=== PATIENT | male | born 1950 | race Caucasian/White ===

== ENCOUNTER 2017-01-01 13:47 | Inpatient (IN) | payer OTHER ==
--- NOTE | 2017-01-01 14:24 | PDOC ---
[id number] I have performed the following: I have examined & evaluated the patient, The case was reviewed & discussed with the resident, I agree w/resident's findings & plan, Exceptions are as noted - HPI HPI: 66 yo M history esophageal and colon CA s/p multiple abdominal surgeries ( including 70% colon resection) presents with diarrhea, fever for past 2 days. The diarrhea is water, foul-smelling, and multiple episodes per day. He was referred to ED by his surgeon after an appointment this morning. Dr. Guadarrama called prior to patient arrival with prior history information. He is not currently on any chemo. No recent antibiotic use, travel, sick contacts. He has been hospitalized recently. - Physicial Exam PE: GENERAL: Awake, alert, and fully oriented, in no acute distress. Appears ill but nontoxic. HEAD: No signs of trauma EYES: PERRLA, EOMI, sclera anicteric, conjunctiva clear ENT: Auricles normal inspection, hearing grossly normal, nares patent, oropharynx clear without exudates. Dry mucosa NECK: Normal ROM, supple, no lymphadenopathy, JVD, or masses LUNGS: Breath sounds equal, clear to auscultation bilaterally. No wheezes, and no crackles HEART: Regular rate and rhythm, normal S1 and S2, no murmurs, rubs or gallops ABDOMEN: Soft, nontender, hyperactive bowel sounds. No guarding, no rebound. No masses EXTREMITIES: Normal range of motion, no edema. No clubbing or cyanosis. No cords, erythema, or tenderness NEUROLOGICAL: Cranial nerves II through XII grossly intact. Normal speech, normal gait SKIN: Warm, Dry, normal turgor, no rashes or lesions noted. - Medical Decision Making I received a call from Dr. Guadarrama prior to patient arrival. Presenting with diarrhea, fever. Very complicated surgical history. Will obtain labs. Based on initial vital signs and clinical appearance, patient will require admission. Heart Score/ECG Review - ECG Impressions Comment:: EKG read 14:42- sinus tach 122 bpm, no acute ST/T changes
--- NOTE | 2017-01-01 15:06 | PDOC ---
History of Present Illness - General Chief Complaint: Weakness Stated Complaint: DEHYDRATED, VOMITING (PCP SENT) Time Seen by Provider: 01/01/17 14:16 History Source: Patient Exam Limitations: No Limitations - History of Present Illness Initial Comments: 01/01/17 15:01 66 yo M with significant PMHx of esophageal and colon cancer presents with 2 day history of fevers and diarrhea. He states for the past 2 days he has had a fever tmax 101.4 and constant diarrhea. Diarrhea is non-bloody and very watery and foul smelling more than 10 BM/day. He went to see surgeon today and oncologist and both suggested he come to ED to be evaluated. No recent travel, sick contacts, or antibiotic use. Denies CP, BARNHART, SOB, abd. pain, N/V. Timing/Duration: 24 hours Associated Symptoms: reports: fever/chills, malaise, weakness Past History - Travel Traveled outside of the country in the last 30 days: No Close contact w/someone who was outside of country & ill: No - Past Medical History Allergies/Adverse Reactions: Allergies Allergy/AdvReac Type Severity Reaction Status Date / Time No Known Allergies Allergy Verified 01/01/17 13:52 Home Medications: Ambulatory Orders Atorvastatin Calcium 40 mg PO DAILY 11/03/15 Pantoprazole Sodium [Protonix] 40 mg PO DAILY 11/03/15 Magnesium Oxide [Mag-Ox -] 400 mg PO BID #60 tablet 01/21/16 Furosemide [Lasix] 40 mg PO DAILY 01/01/17 Loperamide HCl [Imodium -] 2 mg PO DAILY 01/01/17 Anemia: No Asthma: No Cancer: Yes (COLON, GASTRO-ESOPHOGEAL CANCER) Cardiac Disorders: Yes (SINUS TACHYCARDIA) CVA: No COPD: No CHF: No Dementia: No Diabetes: Yes (Pt states it is controlled) GI Disorders: No Disorders: (BPH) HTN: No Hypercholesterolemia: Yes Liver Disease: No Seizures: No Thyroid Disease: No Other medical history: had lymph node leaking in stomach in past - Surgical History Abdominal Surgery: Yes (Partical COLECTOMY) Appendectomy: No Cardiac Surgery: No Cholecystectomy: No Lung Surgery: No Neurologic Surgery: No Orthopedic Surgery: No - Immunization History Immunization Up to Date: Yes - Psycho/Social/Smoking Cessation Hx Suicidal Ideation: No Smoking History: Never smoked Have you smoked in the past 12 months: No If you are a former smoker, when did you quit?: over 30 years ago Cigars Per Day: 18 Information on smoking cessation initiated: No Hx Alcohol Use: No Drug/Substance Use Hx: No Substance Use Type: None Hx Substance Use Treatment: No Review of Systems - Review of Systems Able to Perform ROS?: Yes Is the patient limited American proficient: No Cardiac (ROS): Yes: Edema. No: Chest Pain ABD/GI: Yes: Diarrhea. No: Blood Streaked Bowels, Rectal Bleeding, Abdominal cramping *Physical Exam - Vital Signs Last Vital Signs Temp Pulse Resp BP Pulse Ox 99 F 130 H 17 138/68 99 01/01/17 13:50 01/01/17 13:50 01/01/17 13:50 01/01/17 13:50 01/01/17 13:50 - Physical Exam General Appearance: Yes: Moderate Distress HEENT: positive: EOMI, CARRI Neck: positive: Supple Respiratory/Chest: positive: Lungs Clear, Normal Breath Sounds, Other (large 15cm scar just below right scapula. Mediport in place right chest was 2nd intercostal space. ). negative: Respiratory Distress, Accessory Muscle Use Cardiovascular: positive: Regular Rhythm, Regular Rate, S1, S2. negative: Edema , JVD, Murmur Gastrointestinal/Abdominal: positive: Normal Bowel Sounds, Flat, Soft Male Genitalia: positive: other Musculoskeletal: positive: Normal Inspection Extremity: positive: Normal Range of Motion Integumentary: positive: Normal Color, Dry, Warm Neurologic: positive: senior living sales counselor II-XII NML intact, Fully Oriented, Alert, Normal Mood/ Affect, Motor Strength 5/5 ED Treatment Course - LABORATORY CBC & Chemistry Diagram: 01/01/17 12:55 01/01/17 15:03 - RADIOLOGY Radiology Studies Ordered: Category Date Time Status CHEST X-RAY PORTABLE* [RAD] Stat Radiology 01/01/17 14:59 Ordered Medical Decision Making - Medical Decision Making 01/01/17 15:12 A:66 yo M with significant PMHx of esophageal and colon cancer presents with 2 day history of fevers and diarrhea. Found to be febrile and tachycardic. P: * WIll send for Sepsis protocol 01/01/17 16:19 * CBC shows neutrophilia * Will admit the patient to Dr. Joseph *DC/Admit/Observation/Transfer Diagnosis at time of Disposition: Infectious diarrhea in adult patient, Dehydration Diarrhea Qualifiers: Diarrhea type: unspecified type Qualified Code(s): R19.7 - Diarrhea, unspecified Fever Qualifiers: Fever type: unspecified Qualified Code(s): R50.9 - Fever, unspecified - Discharge Dispostion Condition at time of disposition: Stable Admit: Yes
[2017-01-01] MEDS: SODIUM CHLORIDE 1,000 ML IV SCH ×2 (15:07→21:06)
[2017-01-01 15:19] LABS: BASOPHIL 0.3 % (0-2.0); MCH 27.6 pg (25.7-33.7); MCHC 32.1 g/dl (32.0-35.9); MEAN CELL VOLUME 85.8 fl (80-96); MEAN PLT VOLUME 6.4 fl (7.5-11.1); NEUTROPHILS 89.2 % (42.8-82.8); PLATELET COUNT 180 K/MM3 (134-434); RDW 15.3 % (11.9-15.9); WHITE BLOOD COUNT 5.3 K/mm3 (4.0-10.0)
[2017-01-01 15:53] LABS: ALBUMIN 3.2 g/dl (3.4-5.0); ANION GAP 11 (8-16); CALCIUM 7.9 mg/dL (8.5-10.1); CO2 20 mmol/L (21-32); GLUCOSE,RANDOM 124 mg/dL (74-106); SGOT/AST 36 U/L (15-37); SGPT/ALT 38 U/L (12-78)
[2017-01-01 15:55] LABS: BILIRUBIN,TOTAL 0.3 mg/dL (0.2-1.0); COCKROFT - GAULT 61.78; CREATININE 1.3 mg/dL (0.7-1.3)
[2017-01-01 15:56] LABS: INR 1.18 (0.82-1.09)
[2017-01-01 15:57] LABS: ALK PHOS 87 U/L (45-117); TROPONIN I < 0.02 ng/ml (0.00-0.05)
[2017-01-01 15:58] LABS: ACTIVATED PTT 29.8 SECONDS (26.9-34.4)
[2017-01-01] MEDS ORDERED: ACETAMINOPHEN 325 MG TABLET (FP) PO ONE (16:04)
[2017-01-01] MEDS ORDERED: ACETAMINOPHEN 325 MG TABLET (FP) ONE (16:07)
[2017-01-01] MEDS ORDERED: METRONIDAZOLE 500 MG PREMIXED 100 ML IVPB ONE ×2 (17:46→18:29)
[2017-01-01] MEDS ORDERED: CEFTRIAXONE 50 ML ONE (18:29)
[2017-01-01] MEDS: cefTRIAXone 1 GM/50 ML BAG (PRE-DOCKED) IVPB SCH (18:41)
[2017-01-01] MEDS ORDERED: ONDANSETRON 4 MG/2 ML VIAL IVPB PRN (18:42)
[2017-01-01] MEDS ORDERED: ACETAMINOPHEN 325 MG TABLET (FP) PO PRN (18:42)
[2017-01-01 20:37] VITALS: BMI 22.5
[2017-01-01] MEDS: HEPARIN NA (PORCINE) 5,000 UNITS/ML 1ML VIAL SQ SCH (21:07)
[2017-01-01] MEDS: ATORVASTATIN CA 40 MG TABLET (FP) PO SCH ×2 (21:07→22:18)
[2017-01-01] MEDS: MAGNESIUM OXIDE 400 MG TABLET (FP) PO SCH (21:07)
--- NOTE | 2017-01-01 22:07 | CONSULT ---
Consult - text type - Consultation Consultation Note: Patient seen and examined 66 yo M with significant PMHx of esophageal and colon cancer presents with 2 day history of fevers and diarrhea. He states for the past 2 days he has had a fever tmax 101.4 and constant diarrhea. Diarrhea is non-bloody and very watery and foul smelling more than 10 BM/day. Denies CP, BARNHART, SOB, abd. pain, N/V. - Past Medical History Colon cancer GE junction cancer DM sinus tachycardia BPH hypercholesterolemia Allergies/Adverse Reactions: Allergies Allergy/AdvReac Type Severity Reaction Status Date / Time No Known Allergies Allergy Verified 01/01/17 13:52 Home Medications: Ambulatory Orders Atorvastatin Calcium 40 mg PO DAILY 11/03/15 Pantoprazole Sodium [Protonix] 40 mg PO DAILY 11/03/15 Magnesium Oxide [Mag-Ox -] 400 mg PO BID #60 tablet 01/21/16 Furosemide [Lasix] 40 mg PO DAILY 01/01/17 Loperamide HCl [Imodium -] 2 mg PO DAILY 01/01/17 \ - Surgical History Abdominal Surgery: subtotal colectomy gastroesophagectomy - Psycho/Social/Smoking Cessation Hx Smoking History: Never smoked *Physical Exam - Vital Signs Last Vital Signs Temp Pulse Resp BP Pulse Ox 99 F 130 H 17 138/68 99 01/01/17 13:50 01/01/17 13:50 01/01/17 13:50 01/01/17 13:50 01/01/17 13:50 Cor: RSR, No murmurs, No gallops Lungs: Clear to P&A Abd: Soft, Normal bowel sounds, No organomegaly Ext:No significant edema A/P 66 y/o male with h/o colon cancer stage II s/p resection, subtotal colectomy. 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 Post op. 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 viral versus other No abdominal symptoms check cultures check stool studies/c,diff IV fluids ID consult empiric rocephin/flagyl
[2017-01-02] MEDS: SODIUM CHLORIDE 1,000 ML IV SCH ×2 (05:57→11:31)
[2017-01-02 07:24] LABS: BASOPHIL 0.4 % (0-2.0); MCH 27.7 pg (25.7-33.7); MCHC 32.8 g/dl (32.0-35.9); MEAN CELL VOLUME 84.6 fl (80-96); MEAN PLT VOLUME 5.9 fl (7.5-11.1); NEUTROPHILS 78.4 % (42.8-82.8); PLATELET COUNT 168 K/MM3 (134-434); RDW 14.8 % (11.9-15.9); WHITE BLOOD COUNT 2.6 K/mm3 (4.0-10.0)
[2017-01-02 07:57] LABS: ALBUMIN 2.7 g/dl (3.4-5.0); ANION GAP 10 (8-16); CO2 20 mmol/L (21-32); GLUCOSE,RANDOM 97 mg/dL (74-106); SGOT/AST 28 U/L (15-37); SGPT/ALT 30 U/L (12-78)
[2017-01-02 08:00] LABS: ALK PHOS 74 U/L (45-117); BILIRUBIN,TOTAL 0.3 mg/dL (0.2-1.0); COCKROFT - GAULT 80.79; TOT PROT 6.1 g/dl (6.4-8.2)
[2017-01-02] MEDS ORDERED: PANTOPRAZOLE 40 MG TABLET (FP) PO SCH (10:00)
[2017-01-02] MEDS ORDERED: FUROSEMIDE 40 MG TABLET (FP) PO SCH (10:00)
[2017-01-02] MEDS: MAGNESIUM OXIDE 400 MG TABLET (FP) PO SCH (10:24)
[2017-01-02] MEDS: HEPARIN NA (PORCINE) 5,000 UNITS/ML 1ML VIAL SQ SCH ×2 (10:24→22:21)
[2017-01-02] MEDS: cefTRIAXone 1 GM/50 ML BAG (PRE-DOCKED) IVPB SCH (10:25)
--- NOTE | 2017-01-02 10:40 | HP ---
Admitting History and Physical - Admission Chief Complaint: vomtting and fever History of Present Illness: 66 y/o male with comes in with two day hsitory of watery non bloody no foul selling diarrhea adn temp 101 with chills, he says he has been having multiple episodes and he feels weak and tired, he took imodium no relief,He was referred to ED by his surgeon after an appointment this morning.He is not currently on any chemo. No recent antibiotic use, travel, sick contacts. He has been hospitalized recently. 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 Post op. 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 d/ruddy subsequently by pt (with MD consultation ) because of dizziness) Gastrointestinal: Yes: Cancer (colon s/p chemo and surgery, now GE junction CA - > chemo and XRT -> for surgery), Diverticulosis Heme/Onc: Yes: Cancer (colon), Current Chemotherapy, Current Radiation Therapy Rheumatology: Yes: Other (Psoriasis) Endocrine: Yes: Diabetes Mellitus (for > 20 yrs -> on insulin for almost as long ) Dermatology: Yes: Psoriasis - Advance Directives Advance Directives: Yes: Health Care Proxy - Smoking History Smoking history: Former smoker Have you smoked in the past 12 months: No If you are a former smoker, when did you quit?: over 30 years ago - Alcohol/Substance Use Hx Alcohol Use: No - Social History 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 Home Medications - Allergies Allergies/Adverse Reactions: Allergies Allergy/AdvReac Type Severity Reaction Status Date / Time No Known Allergies Allergy Verified 01/01/17 13:52 - Home Medications Home Medications: Ambulatory Orders Atorvastatin Calcium 40 mg PO DAILY 11/03/15 Pantoprazole Sodium [Protonix] 40 mg PO DAILY 11/03/15 Magnesium Oxide [Mag-Ox -] 400 mg PO BID #60 tablet 01/21/16 Furosemide [Lasix] 40 mg PO DAILY 01/01/17 Loperamide HCl [Imodium -] 2 mg PO DAILY 01/01/17 Family Disease History - Family Disease History Family Disease History: CA: Father (lung), Other: Mother (CVA in her 80s) Physical Examination Vital Signs: Vital Signs Temperature 100.6 F H 01/02/17 06:00 Pulse Rate 99 H 01/02/17 06:00 Respiratory Rate 20 01/02/17 06:00 Blood Pressure 127/70 01/02/17 06:00 O2 Sat by Pulse Oximetry (%) 96 01/01/17 20:41 temp 100.6 and wbc 2.6 in bed awake alert oriented still with loose BM Constitutional: Yes: Calm, Thin Neck: Yes: Trachea Midline Cardiovascular: Yes: Regular Rate and Rhythm, S1, S2 Respiratory: Yes: CTA Bilaterally Gastrointestinal: Yes: Normal Bowel Sounds, Soft, Other (multiple surgical scars ) Edema: No Neurological: Yes: Alert, Oriented Labs: CBC, BMP 01/02/17 06:35 01/02/17 06:35 Problem List - Problems (1) Diarrhea Assessment/Plan: got flagy l and rocephin in ER stool c diff negative stool studies ordered iv fluids ID consult heme on board kosta stop magoxide and ppi given the diarrhea will monitor lytes will hold lasix for now Code(s): R19.7 - DIARRHEA, UNSPECIFIED Qualifiers: Qualified Code(s): R19.7 - Diarrhea, unspecified (2) Dehydration Assessment/Plan: bun is trendign down with iv fluids Code(s): E86.0 - DEHYDRATION (3) Colon cancer Assessment/Plan: s/p multipe surgeries dvt ppx Code(s): C18.9 - MALIGNANT NEOPLASM OF COLON, UNSPECIFIED Assessment/Plan h/o DM check Hga1c diabetic diet
[2017-01-02 10:47] LABS: URINE APPEARANCE CLEAR; URINE BILIRUBIN NEGATIVE (NEGATIVE); URINE BLOOD NEGATIVE (NEGATIVE); URINE COLOR YELLOW; URINE GLUCOSE (UA) NEGATIVE (NEGATIVE); URINE KETONE NEGATIVE (NEGATIVE); URINE LEUK ESTERASE NEGATIVE (NEGATIVE); URINE NITRITE NEGATIVE (NEGATIVE); URINE PROTEIN NEGATIVE (NEGATIVE); URINE UROBILINOGEN NEGATIVE E.U./dl (0.2-1.0)
--- NOTE | 2017-01-02 10:55 | PN ---
Progress Note (short form) - Note Progress Note: ID consult dictated 66 year old man with extensive PMH including hemicolectomy, gatroesophageal cancer s/p gastoesophagectomy, chylous ascites leak s/p shunt with 3 revisions s/p chemo and RT many months ago no travel pet dog and 2 cats no sick contacts no recent antibiotics now with acute onset of nonbloody diarrhea and fevers on Sunday fever- diarrhea/gastroenteritis- started on rocephin/flagyl in ed cdiff negative can d/c flagyl continue ceftriaxone f/u blood cultures send stools for culture, wbc and norovirus extensive history of cancer and abd surgery as above Problem List - Problems (1) Fever Code(s): R50.9 - FEVER, UNSPECIFIED Qualifiers: Fever type: unspecified Qualified Code(s): R50.9 - Fever, unspecified (2) Diarrhea Code(s): R19.7 - DIARRHEA, UNSPECIFIED Qualifiers: Diarrhea type: unspecified type Qualified Code(s): R19.7 - Diarrhea, unspecified
[2017-01-02] MEDS ORDERED: INSULIN (NOVOLOG) ASPART 100 UNITS/ML 10ML VIAL ONE (11:14)
[2017-01-02] MEDS: INSULIN SLIDING SCALE (NOVOLOG) 1 VIAL SQ SCH ×3 (11:30→22:21)
--- NOTE | 2017-01-02 14:22 | CONS ---
DATE OF CONSULTATION: DATE OF DICTATION: 01/02/2017 REQUESTING PHYSICIAN: Roger Joseph MD HISTORY OF PRESENT ILLNESS: This is a 66-year-old man admitted with a history of diarrhea since Sunday. He has had some associated fever and chills, as high as 101 at home. He saw his surgeon on Sunday who advised admission. He declined, went home. Later that day, he continued to feel poorly. He came to [facility]. His surgeon is at [facility], and he did not want to be hospitalized there. There is no history of any recent travel or sick contacts. He has not been on antibiotics recently. He was last in the hospital 2 months ago at [facility] for a shunt revision, and there have not been any unusual foods. His stools are yellow, they are non-bloody, and he reports this morning, they are already improving. He has a history of colon cancer. He is status post a subtotal colectomy. He has a history of GE junction cancer. He is status post esophagogastrectomy, chemotherapy and radiation therapy. His postoperative course was complicated by chylous ascites requiring , a shunt that was revised 3 times, the last 2 months ago. As well, he states on the last surgery, they were able to find the area of leak and patch it. His ascites has resolved since that time. He has no vomiting. He has no nausea. His appetite is limited because he has a stricture at the site of anastomosis of his prior surgery. PAST MEDICAL HISTORY: Notable for hyperlipidemia, history of colon cancer, history of GE junction cancer. He is status post chemotherapy and radiation therapy, all of which he finished many months ago. He has a history of diverticulosis, colon cancer, psoriasis, diabetes. SURGICAL HISTORY: As per HPI. He has had a subtotal colectomy, esophagogastrectomy, placement of an abdominal shunt that has been revised 3 times. FAMILY HISTORY: Notable for lung cancer and CVA in his mom, lung cancer in his dad. ALLERGIES: There are no known allergies. MEDICATIONS: He takes atorvastatin, Protonix, magnesium oxide, Lasix, and Imodium p.r.n. as an outpatient. 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 He lives with his . They have a dog and 2 cats. His was recently seen in the emergency room for fecal impaction and was given laxatives. He is a former smoker and he quit over 30 years ago. REVIEW OF SYSTEMS: He reports feeling better at this time. PHYSICAL EXAMINATION Vital signs: His maximum temperature is 102.8 in the emergency room, current temperature is 98.1, pulse 88, blood pressure 111/65, respiratory rate 20, he is saturating 100%. HEENT: He is normocephalic. His eyes are anicteric. Neck: Supple. Lungs: Clear to auscultation. Heart: Regular rate and rhythm. Abdomen: Soft, nontender. Extremities: Without edema. Skin: Notable for a large midline incision which is well healed. He has an incision on his right back, which is well healed. On his left chest, he has a palpable shunt running up the left side of his anterior chest. DIAGNOSTIC DATA: Labs are notable for a white count on admission of 5.3, this morning 2.6, hemoglobin 10.6, platelets are 168. INR is 1. BUN 26, creatinine 1, (on admission, BUN was 30 and creatinine was 1.3). Urinalysis negative. Blood cultures are pending. C. difficile has come back negative. SUMMARY: This is a 66-year-old man with multiple recent surgeries, the last 2 months ago, not on chemotherapy or radiation therapy. So, now he has acute onset of diarrhea accompanied by fevers and chills. He was started on ceftriaxone and Flagyl. Can stop the Flagyl if the Clostridium difficile is negative. Would continue ceftriaxone. Would hopefully stool for culture, white blood cells, and an oral virus should be sent to complete his evaluation. Further recommendations to follow. VENESSA GREEN M.D. [id number]
[2017-01-02] MEDS: ATORVASTATIN CA 40 MG TABLET (FP) PO SCH (22:17)
[2017-01-03] MEDS: INSULIN SLIDING SCALE (NOVOLOG) 1 VIAL SQ SCH ×4 (06:54→21:00)
--- NOTE | 2017-01-03 08:18 | EKG ---
Test Reason : Blood Pressure : / mmHG Vent. Rate : 092 BPM Atrial Rate : 092 BPM P-R Int : 170 ms QRS Dur : 084 ms QT Int : 366 ms P-R-T Axes : 076 -04 026 degrees QTc Int : 452 ms NORMAL SINUS RHYTHM WITH SINUS ARRHYTHMIA LOW VOLTAGE QRS POSSIBLE INFERIOR INFARCT (CITED ON OR BEFORE 01-JAN-2017) ABNORMAL ECG WHEN COMPARED WITH ECG OF 01-JAN-2017 14:36, NO SIGNIFICANT CHANGE WAS FOUND Confirmed by NUBIA WARD MD ([id number]) on 01/03/2017 8:17:58 AM Referred By: MELITA ROSENBERG Confirmed By:NUBIA WARD MD
--- NOTE | 2017-01-03 08:22 | EKG ---
Test Reason : Blood Pressure : / mmHG Vent. Rate : 122 BPM Atrial Rate : 122 BPM P-R Int : 178 ms QRS Dur : 064 ms QT Int : 288 ms P-R-T Axes : 072 000 038 degrees QTc Int : 410 ms SINUS TACHYCARDIA POSSIBLE INFERIOR INFARCT , AGE UNDETERMINED ABNORMAL ECG WHEN COMPARED WITH ECG OF 27-MAY-2016 16:06, VENT. RATE HAS INCREASED Confirmed by NUBIA WARD MD ([id number]) on 01/03/2017 8:21:31 AM Referred By: Confirmed By:NUBIA WARD MD
[2017-01-03 08:39] LABS: ALBUMIN 2.9 g/dl (3.4-5.0); ALK PHOS 80 U/L (45-117); ANION GAP 10 (8-16); BILIRUBIN,TOTAL 0.3 mg/dL (0.2-1.0); CALCIUM 8.5 mg/dL (8.5-10.1); CO2 22 mmol/L (21-32); COCKROFT - GAULT 90.42; CREATININE 0.9 mg/dL (0.7-1.3); GLUCOSE,RANDOM 79 mg/dL (74-106); MAGNESIUM 1.9 mg/dL (1.8-2.4); SGOT/AST 34 U/L (15-37); SGPT/ALT 30 U/L (12-78); TOT PROT 6.4 g/dl (6.4-8.2)
[2017-01-03 08:44] LABS: BASOPHIL 0.6 % (0-2.0); EOSINOPHIL 1.9 % (0-4.5); MCH 27.3 pg (25.7-33.7); MCHC 32.2 g/dl (32.0-35.9); MEAN CELL VOLUME 84.7 fl (80-96); MEAN PLT VOLUME 6.3 fl (7.5-11.1); NEUTROPHILS 53.1 % (42.8-82.8); PLATELET COUNT 183 K/MM3 (134-434); RDW 14.9 % (11.9-15.9); WHITE BLOOD COUNT 2.3 K/mm3 (4.0-10.0)
--- NOTE | 2017-01-03 08:53 | PN ---
Progress Note, Physician - Current Medication List Current Medications: Active Medications Acetaminophen (Tylenol -) 650 mg PO Q4H PRN PRN Reason: FEVER OR PAIN Last Admin: 01/02/17 05:56 Dose: 650 mg Atorvastatin Calcium (Lipitor -) 40 mg PO HS MEGHANA Last Admin: 01/02/17 22:17 Dose: Not Given Heparin Sodium (Porcine) (Heparin -) 5,000 unit SQ BID MEGHANA Last Admin: 01/02/17 22:21 Dose: 5,000 unit Sodium Chloride (Normal Saline -) 1,000 mls @ 75 mls/hr IV ASDIR MEGHANA Last Admin: 01/02/17 11:31 Dose: 75 mls/hr Insulin Aspart (Novolog Vial Sliding Scale -) 1 vial SQ ACHS MEGHANA PRN Reason: Protocol Last Admin: 01/03/17 06:54 Dose: Not Given Ondansetron HCl (Zofran Injection) 4 mg IVPB Q6H PRN PRN Reason: NAUSEA - Objective Vital Signs: Vital Signs Temperature 98.2 F 01/03/17 06:00 Pulse Rate 72 01/03/17 06:00 Respiratory Rate 20 01/03/17 06:00 Blood Pressure 112/61 01/03/17 06:00 O2 Sat by Pulse Oximetry (%) 100 01/02/17 21:00 Labs: CBC, BMP 01/03/17 06:15 01/03/17 06:15 INR, PTT INR 1.18 (0.82-1.09) H 01/01/17 15:03 Problem List - Problems (1) Anemia Code(s): D64.9 - ANEMIA, UNSPECIFIED (2) Infectious diarrhea in adult patient Assessment/Plan: got flagy l and rocephin in ER stool c diff negative stool studies ordered iv fluids ID consult heme on board kosta stop magoxide and ppi given the diarrhea will monitor lytes will hold lasix for now Code(s): A09 - INFECTIOUS GASTROENTERITIS AND COLITIS, UNSPECIFIED (3) Colon cancer Code(s): C18.9 - MALIGNANT NEOPLASM OF COLON, UNSPECIFIED (4) Diabetes Code(s): E11.9 - TYPE 2 DIABETES MELLITUS WITHOUT COMPLICATIONS Qualifiers: Diabetes mellitus type: type 2 Diabetes mellitus complication status: without complication Qualified Code(s): E11.9 - Type 2 diabetes mellitus without complications
[2017-01-03] MEDS: HEPARIN NA (PORCINE) 5,000 UNITS/ML 1ML VIAL SQ SCH ×3 (09:22→21:10)
[2017-01-03] MEDS: SODIUM CHLORIDE 1,000 ML IV SCH ×2 (09:25→22:50)
--- NOTE | 2017-01-03 15:27 | PN ---
Progress Note (short form) - Note Progress Note: no fevers less diarrhea Vital Signs Period Temp Pulse Resp BP Sys/Keene Pulse Ox Last 24 Hr 97.4 F-98.2 F 72-94 20-20 97-120/60-68 100 cor-rrr lungs clear abd soft,nt ext no edema CBC, BMP 01/03/17 06:15 01/03/17 06:15 Microbiology 01/01/17 15:04 Blood - Peripheral Venous Blood Culture - Preliminary NO GROWTH OBTAINED AFTER 48 HOURS, INCUBATION TO CONTINUE FOR 3 DAYS. 01/01/17 15:04 Blood - Peripheral Venous Blood Culture - Preliminary NO GROWTH OBTAINED AFTER 48 HOURS, INCUBATION TO CONTINUE FOR 3 DAYS. 01/03/17 09:30 Stool Norovirus GI - Preliminary 01/03/17 09:30 Stool Norovirus GII - Preliminary 01/01/17 15:16 Stool Clostridium difficile Antigen (MAGGIE) - Final 01/01/17 15:16 Stool Clostridium difficile Toxin Assay - Final a/p resolving gastroenteritis if afebrile in am suggest d/c home off antibiotics Problem List - Problems (1) Fever Code(s): R50.9 - FEVER, UNSPECIFIED Qualifiers: Fever type: unspecified Qualified Code(s): R50.9 - Fever, unspecified (2) Diarrhea Code(s): R19.7 - DIARRHEA, UNSPECIFIED Qualifiers: Diarrhea type: unspecified type Qualified Code(s): R19.7 - Diarrhea, unspecified
[2017-01-03] MEDS: ATORVASTATIN CA 40 MG TABLET (FP) PO SCH (21:00)
--- NOTE | 2017-01-03 22:41 | PN ---
Progress Note (short form) - Note Progress Note: patient seen and examined feels better 2 bowel movements today afvss Cor: RSR, No murmurs, No gallops Lungs: Clear to P&A Abd: Soft, Normal bowel sounds, No organomegaly Ext:No significant edema Abnormal Lab Results 01/03/17 01/03/17 01/03/17 06:15 06:15 06:15 WBC 2.3 L Hgb 11.6 L MPV 6.3 L Monocytes % 17.4 H Chloride 112 H BUN 19 H D Hemoglobin A1c % 6.5 H D Albumin 2.9 L Active Medications Generic Name Dose Route Start Last Admin Trade Name Freq PRN Reason Stop Dose Admin Acetaminophen 650 mg 01/01/17 18:42 01/02/17 05:56 Tylenol - PO 650 mg Q4H PRN Administration FEVER OR PAIN Atorvastatin Calcium 40 mg 01/01/17 22:00 01/03/17 21:00 Lipitor - PO Not Given HS MEGHANA Heparin Sodium (Porcine) 5,000 unit 01/01/17 22:00 01/03/17 21:10 Heparin - SQ 5,000 unit BID MEGHANA Administration Sodium Chloride 1,000 mls @ 75 mls/hr 01/02/17 11:00 01/03/17 22:50 Normal Saline - IV 75 mls/hr ASDIR MEGHANA Administration Insulin Aspart 1 vial 01/02/17 11:00 01/04/17 06:23 Novolog Vial Sliding Scale - SQ Not Given ACHS MEGHANA Protocol Ondansetron HCl 4 mg 01/01/17 18:42 Zofran Injection IVPB Q6H PRN NAUSEA a/p 66 y/o male with h/o colon cancer stage II s/p resection, subtotal colectomy. 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 Post op. 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 viral syndrome improving clinically
[2017-01-04] MEDS: INSULIN SLIDING SCALE (NOVOLOG) 1 VIAL SQ SCH ×2 (06:23→10:21)
[2017-01-04] MEDS ORDERED: INSULIN (NOVOLOG) ASPART 100 UNITS/ML 10ML VIAL ONE (10:06)
[2017-01-04] MEDS: SODIUM CHLORIDE 1,000 ML IV SCH (10:19)
[2017-01-04] MEDS: HEPARIN NA (PORCINE) 5,000 UNITS/ML 1ML VIAL SQ SCH (10:19)
--- NOTE | 2017-01-04 10:43 | DS ---
Physical Examination Vital Signs: Vital Signs Temperature 97.8 F 01/04/17 06:00 Pulse Rate 80 01/04/17 06:00 Respiratory Rate 18 01/04/17 06:00 Blood Pressure 102/59 01/04/17 06:00 O2 Sat by Pulse Oximetry (%) 100 01/02/17 21:00 Labs: CBC, BMP 01/03/17 06:15 01/03/17 06:15 Discharge Summary Reason For Visit: INFECTIOUS DIARRHEA IN ADULT; DEHYDRATION Current Active Problems Anemia (Acute) Arrhythmia (Acute) Dehydration (Acute) Diarrhea (Acute) Fever (Acute) Infectious diarrhea in adult patient (Acute) Hospital Course: Admission Chief Complaint: vomtting and fever History of Present Illness: 66 y/o male with comes in with two day hsitory of watery non bloody no foul selling diarrhea adn temp 101 with chills, he says he has been having multiple episodes and he feels weak and tired, he took imodium no relief,He was referred to ED by his surgeon after an appointment this morning.He is not currently on any chemo. No recent antibiotic use, travel, sick contacts. He has been hospitalized recently. 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 Post op. 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 d/ruddy subsequently by pt (with MD consultation ) because of dizziness) Gastrointestinal: Yes: Cancer (colon s/p chemo and surgery, now GE junction CA - > chemo and XRT -> for surgery), Diverticulosis Heme/Onc: Yes: Cancer (colon), Current Chemotherapy, Current Radiation Therapy Rheumatology: Yes: Other (Psoriasis) Endocrine: Yes: Diabetes Mellitus (for > 20 yrs -> on insulin for almost as long ) Dermatology: Yes: Psoriasis - Advance Directives Advance Directives: Yes: Health Care Proxy - Smoking History Smoking history: Former smoker Have you smoked in the past 12 months: No If you are a former smoker, when did you quit?: over 30 years ago seen by ID viral gastroenteritis: c diff and stool stuidies negative fever resolved dehydration sec to diarhea bun/cr improved now afebrile dc home Condition: Improved - Instructions Referrals: Roger Joseph MD [Primary Care Provider] - Disposition: HOME - Home Medications Comprehensive Discharge Medication List: Ambulatory Orders Atorvastatin Calcium 40 mg PO DAILY 11/03/15 Pantoprazole Sodium [Protonix] 40 mg PO DAILY 11/03/15 Magnesium Oxide [Mag-Ox -] 400 mg PO BID #60 tablet 01/21/16 Furosemide [Lasix] 40 mg PO DAILY 01/01/17 Loperamide HCl [Imodium -] 2 mg PO DAILY 01/01/17
[2017-01-04 13:53] VITALS: TEMP 97.7
[2017-01-04 15:02] VITALS: BP 102/58; PULSE 80
== END 2017-01-04 17:36 | disposition home or self-care (01) | DRG 392 ==
LOC: JER 13:47 → JERBED 16:23 → J6S 20:41
PROVIDERS: ADMIT Family Medicine; ATTEND Family Medicine
DX: A08.4 Viral intestinal infection, unspecified (principal); E86.0 Dehydration; Z85.038 Personal history of other malignant neoplasm of large intestine; Z85.01 Personal history of malignant neoplasm of esophagus; E11.9 Type 2 diabetes mellitus without complications; Z79.4 Long term (current) use of insulin; N40.0 Benign prostatic hyperplasia without lower urinary tract symptoms; E78.00 Pure hypercholesterolemia, unspecified
CPT/HCPCS: 36415; 71010-TC; 74020-TC; 80053; 81003; 82550; 83036; 83605; 83690; 83735; 84484; 85025; 85610; 85730; 86850; 86900; 86901; 87040; 87045; 87046; 87177; 87205; 87207; 87209; 87324; 87328; 87329; 87449; 87798; 93005; 93010; 97116-GP; 97161-GP; 99284-25; J1644

== ENCOUNTER 2017-02-12 10:07 | Inpatient (IN) | payer OTHER ==
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
[2017-02-12 12:15] LABS: INR 1.17 (0.82-1.09); PROTHROMBIN TIME (PATIENT) 12.9 SEC (9.98-11.88)
[2017-02-12 12:29] LABS: ALBUMIN 3.5 g/dl (3.4-5.0); CALCIUM 8.8 mg/dL (8.5-10.1); GLUCOSE,RANDOM 87 mg/dL (74-106)
[2017-02-12 12:36] LABS: ALK PHOS 79 U/L (45-117); ANION GAP 11 (8-16); BILIRUBIN,TOTAL 0.6 mg/dL (0.2-1.0); CO2 23 mmol/L (21-32); CREATININE 0.8 mg/dL (0.7-1.3); SGOT/AST 32 U/L (15-37); SGPT/ALT 36 U/L (12-78); TOT PROT 7.1 g/dl (6.4-8.2); TROPONIN I < 0.02 ng/ml (0.00-0.05)
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
[2017-02-12 13:06] LABS: EOSINOPHIL 2.1 % (0-4.5); MCH 27.9 pg (25.7-33.7); MCHC 32.5 g/dl (32.0-35.9); MEAN CELL VOLUME 85.8 fl (80-96); MEAN PLT VOLUME 6.7 fl (7.5-11.1); NEUTROPHILS 71.2 % (42.8-82.8); PLATELET COUNT 157 K/MM3 (134-434); RDW 16.2 % (11.9-15.9); WHITE BLOOD COUNT 4.1 K/mm3 (4.0-10.0)
[2017-02-12] MEDS ORDERED: ACETAMINOPHEN 325 MG TABLET (FP) PO PRN ×2 (14:58→18:05)
[2017-02-12] MEDS ORDERED: DEXTROSE 5%-0.45% SALINE 1,000 ML IV SCH ×2 (15:00→18:05)
[2017-02-12 15:28] VITALS: BMI 22.1
[2017-02-12 15:55] LABS: MAGNESIUM 1.8 mg/dL (1.8-2.4)
--- NOTE | 2017-02-12 16:14 | EKG ---
Test Reason : Blood Pressure : / mmHG Vent. Rate : 086 BPM Atrial Rate : 086 BPM P-R Int : 166 ms QRS Dur : 082 ms QT Int : 372 ms P-R-T Axes : 075 037 037 degrees QTc Int : 445 ms SINUS RHYTHM WITH SINUS ARRHYTHMIA WITH OCCASIONAL PREMATURE VENTRICULAR COMPLEXES LOW VOLTAGE QRS BORDERLINE ECG WHEN COMPARED WITH ECG OF 02-JAN-2017 08:54, PREMATURE VENTRICULAR COMPLEXES ARE NOW PRESENT Confirmed by ED MASSEY, NUBIA ([id number]) on 02/12/2017 4:13:59 PM Referred By: Confirmed By:NUBIA WARD MD
[2017-02-12] MEDS ORDERED: PROPOFOL 20 ML ONE (16:24)
[2017-02-12] MEDS ORDERED: MIDAZOLAM HCL 2 MG/2 ML SINGLE DOSE VIAL ONE (16:24)
[2017-02-12] MEDS ORDERED: ceFAZolin SODIUM 1 GM VIAL ONE (16:42)
[2017-02-12] MEDS ORDERED: ceFAZolin SODIUM 1 GM VIAL IVPB ONE (16:43)
[2017-02-12] MEDS ORDERED: KETOROLAC TROMETHAMINE 30 MG/1 ML VIAL ONE (17:00)
[2017-02-12] MEDS ORDERED: DEXAMETHASONE SOD PHOSPHATE 4 MG/1 ML VIAL ONE (17:00)
[2017-02-12] MEDS ORDERED: PROMETHAZINE HCL 25 MG/1 ML VIAL IVPUSH PRN (17:29)
[2017-02-12] MEDS ORDERED: LACTATED RINGERS SOLUTION 1,000 ML IV SCH (17:30)
[2017-02-12] MEDS: HYDROmorphone HCL CARPU-JECT 1 MG/1 ML DISP.SYRIN IVPUSH PRN ×4 (17:40→18:10)
[2017-02-12] MEDS ORDERED: HYDROmorphone HCL CARPU-JECT 2 MG/1 ML DISP.SYRIN ONE (17:40)
[2017-02-12] MEDS ORDERED: ATORVASTATIN CA 40 MG TABLET (FP) PO SCH ×2 (22:00)
[2017-02-12] MEDS ORDERED: HEPARIN NA (PORCINE) 5,000 UNITS/ML 1ML VIAL SQ SCH (22:00)
[2017-02-12] MEDS ORDERED: CEFAZOLIN 1 GM/D5W 50 ML IVPB SCH (23:59)
[2017-02-13] MEDS: CEFAZOLIN (PRE-DOCKED) 50 ML IVPB SCH ×2 (01:56→09:46)
[2017-02-13 06:31] VITALS: BP 115/71
[2017-02-13 07:14] LABS: BASOPHIL 0.3 % (0-2.0); EOSINOPHIL 0.2 % (0-4.5); MCH 28.2 pg (25.7-33.7); MCHC 33.6 g/dl (32.0-35.9); MEAN PLT VOLUME 6.3 fl (7.5-11.1); NEUTROPHILS 78.4 % (42.8-82.8); PLATELET COUNT 146 K/MM3 (134-434); RDW 15.9 % (11.9-15.9); WHITE BLOOD COUNT 4.1 K/mm3 (4.0-10.0)
[2017-02-13 07:23] LABS: INR 1.18 (0.82-1.09)
[2017-02-13 07:25] LABS: ACTIVATED PTT 31.5 SECONDS (26.9-34.4)
[2017-02-13 07:37] LABS: ANION GAP 10 (8-16); CALCIUM 8.1 mg/dL (8.5-10.1); CO2 26 mmol/L (21-32); GLUCOSE,RANDOM 148 mg/dL (74-106); MAGNESIUM 1.7 mg/dL (1.8-2.4)
[2017-02-13 07:43] LABS: ALK PHOS 100 U/L (45-117); BILIRUBIN,TOTAL 0.5 mg/dL (0.2-1.0); COCKROFT - GAULT 87.93; CREATININE 0.9 mg/dL (0.7-1.3); SGOT/AST 38 U/L (15-37); SGPT/ALT 43 U/L (12-78); TOT PROT 6.4 g/dl (6.4-8.2); TROPONIN I < 0.02 ng/ml (0.00-0.05)
--- NOTE | 2017-02-13 09:56 | PN ---
Progress Note (short form) - Note Progress Note: Anesthesia postop note 66 y/o M s/p GA for Right hip ORIF POD#1, vss, aaox3, no complaints, pain well controlled No anesthesia complications.
[2017-02-13] MEDS ORDERED: ASPIRIN 325 MG TABLET PO SCH ×2 (10:00)
[2017-02-13] MEDS ORDERED: MAGNESIUM OXIDE 400 MG TABLET (FP) PO SCH (10:00)
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
[2017-02-13 10:43] LABS: FERRITIN 79.718 ng/ml (16.4-293.9)
--- NOTE | 2017-02-13 14:11 | PN ---
Progress Note (short form) - Note Progress Note: Ortho Pt seen and examined s/p right hip cannulated screws pod #1 Selected Entries 02/13/17 06:00 Temperature 97.7 F Pulse Rate 77 Blood Pressure 115/71 Laboratory Tests 02/13/17 06:05 WBC 4.1 Hgb 10.5 L Hct 31.4 L Plt Count 146 dressing c/d/i, calf soft, nt nvi a/p PT dvt ppx pain control d/c home today f/u in 7-10 days
[2017-02-13 14:17] VITALS: PULSE 83; TEMP 97.3
--- NOTE | 2017-02-13 16:00 | OP ---
DATE OF OPERATION: 02/12/2017 PREOPERATIVE DIAGNOSIS: Right femoral neck fracture. POSTOPERATIVE DIAGNOSIS: Right femoral neck fracture. PROCEDURE: Cannulated screws, right femoral neck fracture. SURGICAL ATTENDING: Travis James MD ANESTHESIA: LMA. CLOSURE: Three 6.5 cannulated screws of appropriate length, 2-0 Vicryl subcuticular, glue for skin. ESTIMATED BLOOD LOSS: Negligible. COMPLICATIONS: None. CONDITION TO RECOVERY ROOM: Stable condition. DESCRIPTION OF OPERATIVE PROCEDURE: Patient was taken to the operating room on February 12, 2017. General anesthesia with LMA was administered by the anesthesiologist. IV Kefzol was administered prophylactically prior to the case. Patient was passed onto the fracture table with all prominences well padded. The right hip area was prepped and draped in the usual sterile fashion. X-ray revealed anatomical position of the fracture in both the AP and lateral plane. A 1-inch incision was made on the lateral aspect of the thigh by sharp dissection, was carried through the fascia, and a periosteal elevator was used to get down to the lateral aspect of the femur. Three cannulated screw guidewires from the 6.5 Kathy cannulated screw set were drilled in a parallel fashion in an L formation from the lateral aspect of the femoral neck, through the femoral neck, into the femoral head. Proper placement was confirmed in the AP and lateral plane by using the image intensifier. These screws were depth gauged and then screwed with the appropriate size 6.5 lag screws. The traction was reduced, and the screws were tightened snuggly, achieving excellent compression of the fracture. The guidewires were removed. X-rays again in AP, lateral, and [id number] views revealed no penetration of the hip joint and excellent position of the components. The wound was irrigated. The subcutaneous was closed in 2-0 Vicryl and glue for the skin with sterile pressure dressing. Patient was awakened from anesthesia and transferred to recovery room in stable condition. No complications. Estimated blood loss negligible. Truong [id number]
[2017-02-14 06:06] LABS: SERUM IRON 29 ug/dL (38-169); TOTAL IRON BINDING CAPACITY 277 ug/dL (250-450); UIBC 248 ug/dL (111-343)
== END 2017-02-13 15:58 | disposition home or self-care (01) | DRG 482 ==
LOC: JER 10:07 → JERBED 11:48 → J6S 14:51
PROVIDERS: ADMIT Family Medicine; ATTEND Family Medicine
PROC: 0QS604Z Reposition Right Upper Femur with Internal Fixation Device, Open Approach (ICD-10-PCS; principal; 2017-02-12 16:45)
DX: S72.001A Fracture of unspecified part of neck of right femur, initial encounter for closed fracture (principal); W19.XXXA Unspecified fall, initial encounter; Y93.9 Activity, unspecified; Y92.89 Other specified places as the place of occurrence of the external cause; Y99.9 Unspecified external cause status; D64.9 Anemia, unspecified; E86.0 Dehydration; Z87.891 Personal history of nicotine dependence; K22.2 Esophageal obstruction; Z85.01 Personal history of malignant neoplasm of esophagus; Z85.038 Personal history of other malignant neoplasm of large intestine
CPT/HCPCS: 36415; 76000-TC; 80048; 80053; 82550; 82553; 82728; 83540; 83550; 83735; 84311; 84484; 85025; 85610; 85730; 86850; 86900; 86901; 93005; 93010; 94010; 94760; 97116-GP; 97162-PG; 99285-25

== ENCOUNTER 2019-01-03 07:31 | Day surgery (SDC) | payer OTHER ==
[2019-01-03] MEDS ORDERED: FERRIC CARBOXYMALTOSE 750 MG in SODIUM CHLORIDE 250 ML IVPB ONE (09:00)
[2019-01-03] MEDS ORDERED: CYANOCOBALAMIN (VITAMIN B-12) 1000 MCG/1 ML VIAL IM ONE (09:23)
[2019-01-03 11:52] VITALS: BP 111/61; PULSE 71; TEMP 97.7
== END 2019-01-03 11:15 | disposition home or self-care (01) ==
LOC: JONCNONCHE 07:31 → J7W 09:19 → JONCNONCHE 11:15
PROVIDERS: ATTEND Internal Medicine Hematology & Oncology
PROC: 3E033GC Introduction of Other Therapeutic Substance into Peripheral Vein, Percutaneous Approach (ICD-10-PCS; principal; 2019-01-03)
PROC: 3E013GC Introduction of Other Therapeutic Substance into Subcutaneous Tissue, Percutaneous Approach (ICD-10-PCS; 2019-01-03)
DX: D50.9 Iron deficiency anemia, unspecified (principal); C15.9 Malignant neoplasm of esophagus, unspecified
CPT/HCPCS: 96365; 96372; J1439

== ENCOUNTER 2019-01-16 07:15 | Day surgery (SDC) | payer OTHER ==
[2019-01-16] MEDS ORDERED: FERRIC CARBOXYMALTOSE 750 MG in SODIUM CHLORIDE 250 ML IVPB ONE (10:00)
[2019-01-16 15:15] VITALS: TEMP 98
[2019-01-16 15:17] VITALS: BP 86/63; PULSE 87
--- NOTE | 2019-01-16 23:08 | HP ---
Satellite PMH - Past Medical History Allergies/Adverse Reactions: Allergies Allergy/AdvReac Type Severity Reaction Status Date / Time No Known Allergies Allergy Verified 02/12/17 10:45 Cardiovascular: Yes: Hyperlipdemia, Other (ST post op in 08/24 -> PAT requiring adenosine -> SR -> started on toprol -. d/ruddy subsequently by pt (with MD consultation ) because of dizziness) Gastrointestinal: Yes: Cancer (colon s/p chemo and surgery, now GE junction CA - > chemo and XRT -> for surgery), Diverticulosis Heme/Onc: Yes: Cancer (colon), Current Chemotherapy, Current Radiation Therapy Rheumatology: Yes: Other (Psoriasis) Endocrine: Yes: Diabetes Mellitus (for > 20 yrs -> on insulin for almost as long ) Dermatology: Yes: Psoriasis - Current Medications Current Medications: Home Medications Medication Instructions Recorded Aspirin [Aspirin EC] 325 mg PO DAILY #30 tablet. 02/13/17 Magnesium Oxide 400 mg PO BID 30 Days tablet 02/13/17 Satellite Physical Exam - Physical Examination Vital Signs: Vital Signs Period Temp Pulse Resp BP Sys/Keene Pulse Ox Last 24 Hr 98 F-98 F 87-89 16-18 86-135/63-64
== END 2019-01-16 11:30 | disposition home or self-care (01) ==
LOC: JONCNONCHE 07:15 → J7W 09:05 → JONCNONCHE 11:30
PROVIDERS: ATTEND Internal Medicine Hematology & Oncology
PROC: 3E033GC Introduction of Other Therapeutic Substance into Peripheral Vein, Percutaneous Approach (ICD-10-PCS; principal; 2019-01-16)
DX: D50.9 Iron deficiency anemia, unspecified (principal)
CPT/HCPCS: 96365; J1439

== ENCOUNTER 2021-06-03 04:35 | Day surgery (SDC) | payer OTHER ==
[2021-05-30 16:52] VITALS: BMI 24.7
[2021-06-03 11:44] VITALS: BP 115/61; PULSE 69; TEMP 98
== END 2021-06-03 12:05 | disposition home or self-care (01) ==
LOC: JASU-ENDO 04:35
PROVIDERS: ATTEND Internal Medicine Gastroenterology
PROC: 0DB98ZX Excision of Duodenum, Via Natural or Artificial Opening Endoscopic, Diagnostic (ICD-10-PCS; 2021-06-03)
PROC: 0DB68ZX Excision of Stomach, Via Natural or Artificial Opening Endoscopic, Diagnostic (ICD-10-PCS; 2021-06-03)
PROC: 0DB28ZX Excision of Middle Esophagus, Via Natural or Artificial Opening Endoscopic, Diagnostic (ICD-10-PCS; 2021-06-03)
PROC: 0DBN8ZX Excision of Sigmoid Colon, Via Natural or Artificial Opening Endoscopic, Diagnostic (ICD-10-PCS; principal; 2021-06-03 10:15)
DX: Z12.11 Encounter for screening for malignant neoplasm of colon (principal); Z85.038 Personal history of other malignant neoplasm of large intestine; Z85.01 Personal history of malignant neoplasm of esophagus; Z98.0 Intestinal bypass and anastomosis status; K64.8 Other hemorrhoids; K21.9 Gastro-esophageal reflux disease without esophagitis; E11.9 Type 2 diabetes mellitus without complications
CPT/HCPCS: 88305-TC; 88342-TC